=== PATIENT | female | born 1965 | race Caucasian/White ===

== ENCOUNTER → 2017-09-14 | Outpatient (CLI) | payer BC ==
[2017-09-14 08:20] LABS: HEMATOCRIT 39.4 % (37.0-47.0); HEMOGLOBIN 12.6 g/dl (12.5-16.0); MEAN CELL VOLUME 93 fl (80.0-100.0); MEAN CORPUSCULAR HEMOGLOBIN 30 pg (27.0-31.0); MEAN CORPUSCULAR HGB CONC 32 g/dl (33.0-37.0); MEAN PLATELET VOLUME 11.2 fl (7.4-10.4); PLATELET COUNT 256 K/mm3 (130-400); RED BLOOD COUNT 4.23 M/mm3 (4.10-5.30); WHITE BLOOD COUNT 6.5 K/mm3 (4.8-10.8)
[2017-09-14 08:24] LABS: ADD PATHOLOGY DIFF REVIEW NO
[2017-09-14 08:33] LABS: ADJUSTED CALCIUM 9.2 mg/dL (8.4-10.2); ALBUMIN 4.5 gm/dL (3.5-5.0); BILIRUBIN,TOTAL 0.5 mg/dL (0.0-1.0); CALCIUM 9.6 mg/dL (8.4-10.2); CHOLESTEROL RISK RATIO 5.1; CREATININE, serum 0.92 mg/dL (0.52-1.25); POTASSIUM 4.7 mmol/L (3.4-5.0); TOTAL PROTEIN 7.8 gm/dL (6.4-8.2)
[2017-09-14 09:04] LABS: TSH w REFLEX 3.34 uIU/mL (0.465-4.680)
[2017-09-14 09:48] LABS: BAND 13 % (0-10); LYMPHOCYTE 48 % (20.0-51.0); MYELOCYTE 1 % (0-0); NEUTROPHILS 36 % (42.0-75.2); PLATELET ESTIMATE NORMAL (NORMAL); TOTAL CELLS COUNTED 100
== END ==
LOC: COL.LAB 07:55
DX: Z00.00 Encounter for general adult medical examination without abnormal findings (principal); Z11.59 Encounter for screening for other viral diseases

== ENCOUNTER → 2017-11-16 | Outpatient (CLI) | payer BC | LOC: MC.RAD 09:54 | DX: N63.23 Unspecified lump in the left breast, lower outer quadrant (principal) ==

== ENCOUNTER → 2018-08-24 | Outpatient (REF) | LOC: ZLAB.WCH 15:52 | DX: Z01.89 Encounter for other specified special examinations (principal) ==

== ENCOUNTER 2018-11-24 05:58 | Day surgery (SDC) | payer BC ==
[2018-11-24] VITALS (10 sets, daily range): BP systolic 91–150; BP diastolic 51–83; PULSE 58–71; TEMP 98.3
[~2018-11-24] VITALS: Ht 170.2 cm; Wt 121.5 kg
[2018-11-24 06:38] LABS: HEMATOCRIT 37.7 % (37.0-47.0); HEMOGLOBIN 12.1 g/dl (12.5-16.0); MEAN CELL VOLUME 96 fl (80.0-100.0); MEAN CORPUSCULAR HEMOGLOBIN 31 pg (27.0-31.0); MEAN CORPUSCULAR HGB CONC 32 g/dl (33.0-37.0); MEAN PLATELET VOLUME 11.1 fl (7.4-10.4); PLATELET COUNT 274 K/mm3 (130-400); RED BLOOD COUNT 3.94 M/mm3 (4.10-5.30); REDCELL DISTRIBUTION WIDTH-CV 13.6 % (11.5-14.5)
[2018-11-24 06:45] LABS: INR 1.1 (0.8-3.0)
[2018-11-24 06:58] LABS: CALCIUM 9.3 mg/dL (8.4-10.2); CREATININE, serum 1.05 mg/dL (0.52-1.25); POTASSIUM 3.9 mmol/L (3.4-5.0)
[2018-11-24] MEDS ORDERED: CATAFLAM50 MG PO (07:02)
[2018-11-24] MEDS ORDERED: GLUCOSAMINE MSM1 TAB PO (07:03)
[2018-11-24] MEDS ORDERED: VITAMIN D 400400 IU PO (07:04)
[2018-11-24] MEDS ORDERED: ZESTRIL 20MG TA20 MG PO (07:05)
[2018-11-24] MEDS ORDERED: ZYRTEC 10MG10 MG PO (07:05)
[2018-11-24] MEDS ORDERED: PROTONIX 40MG T40 MG PO (07:05)
[2018-11-24] MEDS ORDERED: LIPITOR20 MG PO (07:06)
[2018-11-24] MEDS ORDERED: HCTZ 25MG TAB25 MG PO (07:06)
--- NOTE | 2018-11-24 08:48 | NUR ---
Patient to procedure.
--- NOTE | 2018-11-24 08:59 | NUR ---
ALL MEDICATIONS GIVEN VIA VERBAL ORDER WITH READBACK WITH MD. SEE MERGE FOR ALL ADMIN TIMES. POSITIVE BARBEAU'S TEST IN THE RIGHT WRIST.
--- NOTE | 2018-11-24 13:47 | NUR ---
Discharge instructions given to pt.INT removed,catheter tip intact.Pt escorted out via wheelchair by this nurse.
== END 2018-11-24 13:53 | disposition home or self-care (01) ==
LOC: COL.CAR 05:58
PROVIDERS: Internal Medicine Cardiovascular Disease
DX: R94.39 Abnormal result of other cardiovascular function study (principal); I10 Essential (primary) hypertension; E78.00 Pure hypercholesterolemia, unspecified; Z82.61 Family history of arthritis; Z82.5 Family history of asthma and other chronic lower respiratory diseases; Z83.3 Family history of diabetes mellitus; Z82.49 Family history of ischemic heart disease and other diseases of the circulatory system
CPT/HCPCS: J1644; J2250; J3010; Q9967

== ENCOUNTER → 2020-06-10 | Outpatient (CLI) | payer BC ==
[~2020-06-10] MED LIST: CATAFLAM50 MG PO; GLUCOSAMINE MSM1 TAB PO; HCTZ 25MG TAB25 MG PO; LIPITOR20 MG PO; PROTONIX 40MG T40 MG PO; VITAMIN D 400400 IU PO; ZESTRIL 20MG TA20 MG PO; ZYRTEC 10MG10 MG PO
== END ==
LOC: MHCPAIN 13:46
DX: M47.817 Spondylosis without myelopathy or radiculopathy, lumbosacral region (principal); M53.3 Sacrococcygeal disorders, not elsewhere classified; G89.29 Other chronic pain
CPT/HCPCS: G0463

== ENCOUNTER → 2020-06-20 | Outpatient (CLI) | payer BC | LOC: MHCPAIN 08:17 | DX: M47.818 Spondylosis without myelopathy or radiculopathy, sacral and sacrococcygeal region (principal); M53.3 Sacrococcygeal disorders, not elsewhere classified | CPT/HCPCS: G0260; J1040; Q9967 ==

== ENCOUNTER → 2020-07-02 | Outpatient (CLI) | payer BC | LOC: MHCPAIN 15:48 | DX: M47.817 Spondylosis without myelopathy or radiculopathy, lumbosacral region (principal); M54.5 Low back pain; M53.3 Sacrococcygeal disorders, not elsewhere classified; G89.29 Other chronic pain; M54.16 Radiculopathy, lumbar region | CPT/HCPCS: G0463 ==

== ENCOUNTER 2020-09-10 08:30 | Outpatient (RCR) | payer BC | END 2020-09-17 | disposition home or self-care (01) | LOC: WSC | DX: M47.817 Spondylosis without myelopathy or radiculopathy, lumbosacral region (principal); M53.3 Sacrococcygeal disorders, not elsewhere classified ==

== ENCOUNTER → 2020-10-02 | Outpatient (CLI) | payer BC | LOC: MHCPAIN 15:38 | DX: M47.817 Spondylosis without myelopathy or radiculopathy, lumbosacral region (principal); M54.5 Low back pain; M53.3 Sacrococcygeal disorders, not elsewhere classified; M79.10 Myalgia, unspecified site; G89.29 Other chronic pain | CPT/HCPCS: G0463 ==

== ENCOUNTER → 2020-10-21 | Outpatient (RCR) | payer BC | END | disposition still patient (30) | LOC: WSPT → WSC 09-18 08:30 → WSPT 10-07 08:30 → WSC 10-14 14:30 → WSPT 08:30 | DX: M53.3 Sacrococcygeal disorders, not elsewhere classified (principal) ==

== ENCOUNTER 2020-12-25 08:30 | Outpatient (RCR) | payer BC | END 2020-12-25 09:19 | disposition home or self-care (01) | LOC: WSC 08:30 | DX: M53.3 Sacrococcygeal disorders, not elsewhere classified (principal) ==

== ENCOUNTER → 2020-12-25 | Outpatient (CLI) | payer BC | LOC: MHCPAIN 15:13 | DX: M47.817 Spondylosis without myelopathy or radiculopathy, lumbosacral region (principal); M53.3 Sacrococcygeal disorders, not elsewhere classified; M54.5 Low back pain; M79.18 Myalgia, other site; G89.29 Other chronic pain | CPT/HCPCS: G0463 ==

== ENCOUNTER → 2021-06-11 | Outpatient (CLI) | payer BC | LOC: MHCPAIN 13:51 | DX: M47.817 Spondylosis without myelopathy or radiculopathy, lumbosacral region (principal); M53.3 Sacrococcygeal disorders, not elsewhere classified; G89.29 Other chronic pain | CPT/HCPCS: G0463 ==

== ENCOUNTER 2021-06-18 16:30 | Outpatient (RCR) | payer BC | END 2021-06-24 15:52 | disposition home or self-care (01) | LOC: WSPT 16:30 | DX: M25.562 Pain in left knee (principal); Z98.890 Other specified postprocedural states ==

== ENCOUNTER → 2021-06-26 | Outpatient (CLI) | payer BC | LOC: MHCPAIN 08:45 | DX: M47.818 Spondylosis without myelopathy or radiculopathy, sacral and sacrococcygeal region (principal); M53.3 Sacrococcygeal disorders, not elsewhere classified | CPT/HCPCS: G0260; J1040; Q9967 ==

== ENCOUNTER → 2021-07-08 | Outpatient (CLI) | payer BC | LOC: MHCPAIN 10:14 | DX: M47.896 Other spondylosis, lumbar region (principal); M54.5 Low back pain; M53.3 Sacrococcygeal disorders, not elsewhere classified; G89.29 Other chronic pain | CPT/HCPCS: G0463 ==

== ENCOUNTER → 2021-12-26 | Outpatient (CLI) | payer BC | LOC: COL.RAD 10:05 | DX: M23.222 Derangement of posterior horn of medial meniscus due to old tear or injury, left knee (principal); M76.892 Other specified enthesopathies of left lower limb, excluding foot; M17.12 Unilateral primary osteoarthritis, left knee ==

== ENCOUNTER 2022-03-12 12:30 | Outpatient (RCR) | payer BC | END 2022-03-17 | disposition home or self-care (01) | LOC: WSPT | DX: Z01.818 Encounter for other preprocedural examination (principal); M25.562 Pain in left knee ==

== ENCOUNTER 2022-04-13 13:30 | Outpatient (RCR) | payer BC ==
[2022-04-16] MEDS ORDERED: VANCO 1.51.5 GM/250 IV (14:14)
[2022-04-16] MEDS ORDERED: ROCEPHIN 2GM VIAL21 IV (14:14)
== END 2022-04-16 | disposition home or self-care (01) ==
LOC: WSPT
DX: Z01.818 Encounter for other preprocedural examination (principal)

== ENCOUNTER 2022-04-13 15:56 | Inpatient (IN) | payer BC ==
[~2022-04-13] VITALS: Ht 170.2 cm; Wt 119.2 kg
[2022-04-13 16:36] LABS: BASO # 0.1 K/mm3 (0.0-0.2); BASO % 0.7 % (0.0-2.0); EOS # 0.1 K/mm3 (0.0-0.7); EOS % 1.1 % (0.0-4.0); GRAN # 5.9 K/mm3 (1.4-6.5); GRAN % 50.7 % (42.2-75.2); HEMATOCRIT 40.1 % (37.0-47.0); LYMPH # 4.8 K/mm3 (1.2-3.4); LYMPH % 40.6 % (20.0-51.0); MEAN CELL VOLUME 96 fl (80.0-100.0); MEAN CORPUSCULAR HEMOGLOBIN 31 pg (27-31); MEAN CORPUSCULAR HGB CONC 32 g/dl (33.0-37.0); MEAN PLATELET VOLUME 10.5 fl (7.4-10.4); MONO # 0.8 K/mm3 (0.1-0.6); MONO % 6.6 % (1.7-9.3); PLATELET COUNT 341 K/mm3 (130-400); REDCELL DISTRIBUTION WIDTH-CV 13.9 % (11.5-14.5)
[2022-04-13 17:04] LABS: ALBUMIN 3.4 gm/dL (3.5-5.0); BILIRUBIN,TOTAL 0.4 mg/dL (0.2-1.2); CALCIUM 9.5 mg/dL (8.4-10.2); CREATININE, serum 1.24 mg/dL (0.57-1.11); POTASSIUM 3.6 mmol/L (3.5-4.5); TOTAL PROTEIN 7.1 gm/dL (6.2-8.1)
[2022-04-13 20:02] VITALS: BP 132/72; PULSE 77; TEMP 97.6
--- NOTE | 2022-04-13 21:32 | NUR ---
Pt. resting in bed. Pt. is A&OX3, assessment complete. IV to rt. hand patent. Pt. reports pain at a 4 on pain scale, will give pain meds per orders.
[2022-04-13 21:56] LABS: CALCIUM 9.4 mg/dL (8.4-10.2); CREATININE, serum 1.12 mg/dL (0.57-1.11); POTASSIUM 4.2 mmol/L (3.5-4.5)
[2022-04-14] VITALS (13 sets, daily range): BP systolic 100–154; BP diastolic 56–79; PULSE 61–95; TEMP 97.7–98.5
[2022-04-14 05:44] LABS: BASO # 0.1 K/mm3 (0.0-0.2); BASO % 0.9 % (0.0-2.0); EOS # 0.1 K/mm3 (0.0-0.7); EOS % 1.3 % (0.0-4.0); GRAN # 5.4 K/mm3 (1.4-6.5); GRAN % 59.7 % (42.2-75.2); HEMOGLOBIN 11.7 g/dl (12.5-16.0); LYMPH # 2.6 K/mm3 (1.2-3.4); LYMPH % 28.9 % (20.0-51.0); MEAN CELL VOLUME 98 fl (80.0-100.0); MEAN CORPUSCULAR HEMOGLOBIN 31 pg (27-31); MEAN CORPUSCULAR HGB CONC 32 g/dl (33.0-37.0); MEAN PLATELET VOLUME 10.5 fl (7.4-10.4); MONO # 0.8 K/mm3 (0.1-0.6); MONO % 8.9 % (1.7-9.3); PLATELET COUNT 292 K/mm3 (130-400); RED BLOOD COUNT 3.79 M/mm3 (4.10-5.30); REDCELL DISTRIBUTION WIDTH-CV 14.3 % (11.5-14.5)
[2022-04-14 05:58] LABS: CALCIUM 8.8 mg/dL (8.4-10.2); CREATININE, serum 1.25 mg/dL (0.57-1.11); POTASSIUM 4.3 mmol/L (3.5-4.5)
--- NOTE | 2022-04-14 08:37 | NUR ---
PT RESTING IN BED CURRENTLY NPO FOR SURGERY EARLY AFTERNOOD. POLY EXCHANGE AND I&D OF WOUND DEHISSENCE. PAIN CURRENTLY CONTROLLED WITH PO MEDS PRN. IV ABX GIVEN PER ORDERS.
--- NOTE | 2022-04-14 09:06 | NUR ---
Initial visit; Patient thanked Talend Developer for looking in on her though declined spiritual care at this time.
--- NOTE | 2022-04-14 11:44 | NUR ---
PT TO SURGERY PER BED WITH NEY AT THIS TIME. IV TO STRAIGHT TUBING, CONSENT SIGNED ON CHART.
--- NOTE | 2022-04-14 13:28 | NUR ---
assembly line worker met with patient ("Milla") to complete intake and discuss discharge plan. Patient reports that she lives at home with her two daughters and her mother in [place]. Patient is normally independent with her ADL's and had a knee replacement around 3 weeks ago. Patient has a rollator at bedside but states that she has not needed it until her knee replacement. She has been doing outpatient PT at [facility]. Patient is currently on 2L of [place] o2 while in bed but states that she does not utilize oxygen at home. PCP is Dr. Vizcaino and she utilizes [facility] for prescriptions. Patient states that she does not have a DPOA-HC established. Her LNK is her two daughters. Unknown at this time if the patient will need IV antibiotics or not. Patient scheduled for surgery today. Discharge plan: Home w/op pt ( will wait and see about IV antibiotics)
--- NOTE | 2022-04-14 16:04 | NUR ---
PT TO ROOM 343 PER BED WITH REPORT FROM ESTER DILLON. PT IS A/O X3, LUNGS CTA, BOWEL SOUNDS PRESENT. AQUACEL OVER INCISION, HAILEY WRAP AND KNEE IMMOBILIZER. IV TO PUMP. PT DENIES PAIN AT THIS TIME.
--- NOTE | 2022-04-14 20:15 | NUR ---
Pt. sitting up in bed. Pt. is A&OX3, assessment complete. IV to rt. hand patent, IV fluids infusing per orders. Mj wrap dressing and brace to lt. knee. Pt. denies pain or other needs at this time. Call light within reach.
[2022-04-15 00:09] VITALS: BP 136/65; PULSE 98; TEMP 98.6
[2022-04-15 03:07] VITALS: BP 143/70; PULSE 94; TEMP 98.4
[2022-04-15 07:24] VITALS: BP 140/65; PULSE 76; TEMP 98.8
[2022-04-15 12:00] VITALS: BP 156/77; PULSE 80; TEMP 98.6
[2022-04-15 15:22] VITALS: BP 154/86; PULSE 90; TEMP 98.4
[2022-04-15 19:40] VITALS: BP 147/82; PULSE 75; TEMP 98.2
--- NOTE | 2022-04-15 21:00 | NUR ---
PT RESTING IN BED. A&O X4. PLEASANT AND COOPERATIVE. IMMOBLIZER TO LLE. PAIN CONTROLED WITH ROXICODONE. GETTING VANCOMYCIN TO RT HAND INT NEEDLE. NO NEEDS AT THIS TIME.
[2022-04-16] VITALS: BP 153/82; PULSE 69; TEMP 97.8
[2022-04-16 03:55] VITALS: BP 128/86; PULSE 80; TEMP 98.3
--- NOTE | 2022-04-16 07:15 | NUR ---
awake and assisted up to bathroom, moves well, full assessment completed, see interventions for further info, knee immobilizer to right leg,
[2022-04-16 07:25] VITALS: BP 160/87; PULSE 63; TEMP 98.7
--- NOTE | 2022-04-16 09:15 | NUR ---
remains resting in bed, am meds given and vancomycin started
--- NOTE | 2022-04-16 10:22 | NUR ---
physical therapy was in and worked with patient, resting in recliner now
--- NOTE | 2022-04-16 12:00 | NUR ---
Dr Quintana in, explained to patient pneumois not any better and connected to water seal suction, patient and verbalizes understanding
[2022-04-16 12:01] VITALS: BP 147/89; PULSE 89; TEMP 98.3
[2022-04-16] MEDS ORDERED: ROCEPHIN 2GM VIAL21 IV (14:14)
[2022-04-16] MEDS ORDERED: VANCO 1.51.5 GM/250 IV (14:14)
--- NOTE | 2022-04-16 15:03 | NUR ---
resting in bed, has been up and about in room with therapy and had lunch, will plan discharge after evenign antibiotics
[2022-04-16 15:54] VITALS: BP 122/67; TEMP 99.3
--- NOTE | 2022-04-16 16:10 | NUR ---
Patient scheduled to DC. Spoke with the patient about the need for 6 weeks of antibiotics. Patient is agreeable to coming to the express unit for care. Patient's RN notified and script dropped off with RNHaseeb in [facility].
--- NOTE | 2022-04-16 17:30 | NUR ---
in bed and IV rocephin given
--- NOTE | 2022-04-16 17:36 | NUR ---
resting in bed, has ordered supper
--- NOTE | 2022-04-16 18:41 | NUR ---
bedside shift report given to SANTANA Clemente
--- NOTE | 2022-04-16 20:00 | NUR ---
Pt. sitting up in bed. Pt. is A&OX3, assessment complete. IV to lt. forearm patent, ABX infusing per orders. Pt. denies pain. Pt. will discharge when abx's are finished.
--- NOTE | 2022-04-16 20:30 | NUR ---
ABX complete at this time. Discharge paperwork reviewed with the pt. Pt. voices understanding. INT discontinued from lt. forearm. Pt. escorted out by wheel chair with LUCÍA Douglas.
== END 2022-04-16 20:30 | disposition home or self-care (01) | DRG 908 ==
LOC: COL.ER 15:56 → SURG 18:30
PROVIDERS: Personal Emergency Response Attendant; Physician Assistant; Student in an Organized Health Care Education/Training Program; ADMIT Internal Medicine
PROC: 0YQG0ZZ Repair Left Knee Region, Open Approach (ICD-10-PCS; principal; 2022-04-13)
PROC: 0SPD09Z Removal of Liner from Left Knee Joint, Open Approach (ICD-10-PCS; 2022-04-14)
PROC: 0SUW09Z Supplement Left Knee Joint, Tibial Surface with Liner, Open Approach (ICD-10-PCS; 2022-04-14)
DX: T81.31XA Disruption of external operation (surgical) wound, not elsewhere classified, initial encounter (principal); N17.9 Acute kidney failure, unspecified; W10.8XXA Fall (on) (from) other stairs and steps, initial encounter; E78.00 Pure hypercholesterolemia, unspecified; F32.9 Major depressive disorder, single episode, unspecified; Z96.652 Presence of left artificial knee joint; K21.9 Gastro-esophageal reflux disease without esophagitis; G47.33 Obstructive sleep apnea (adult) (pediatric); F32.A Depression, unspecified; G89.29 Other chronic pain; I12.9 Hypertensive chronic kidney disease with stage 1 through stage 4 chronic kidney disease, or unspecified chronic kidney disease; N18.30 Chronic kidney disease, stage 3 unspecified; Y83.8 Other surgical procedures as the cause of abnormal reaction of the patient, or of later complication, without mention of misadventure at the time of the procedure; S76.102A Unspecified injury of left quadriceps muscle, fascia and tendon, initial encounter; Y93.89 Activity, other specified; Y92.89 Other specified places as the place of occurrence of the external cause; Z88.6 Allergy status to analgesic agent; Z79.82 Long term (current) use of aspirin; Z23 Encounter for immunization
CPT/HCPCS: 99239; C1776; J0690; J0696; J1100; J1170; J2250; J2270; J2405; J2543; J2704; J3010; J3370; J7030; J7050; J7120; L1830; L1832; L1846

== ENCOUNTER 2022-05-15 11:15 | Outpatient (RCR) | payer BC ==
[~2022-05-15 11:15] MED LIST changes: +ROCEPHIN 2GM VIAL21 IV; +VANCO 1.51.5 GM/250 IV
== END 2022-05-17 | disposition home or self-care (01) ==
LOC: WSPT
DX: Z01.818 Encounter for other preprocedural examination (principal); M84.462A Pathological fracture, left tibia, initial encounter for fracture

== ENCOUNTER 2022-05-17 07:45 | Outpatient (RCR) | payer BC ==
[2022-04-17 08:08] VITALS: BP 152/99; PULSE 129; TEMP 98.5
[2022-04-17 11:04] VITALS: BP 139/97; PULSE 96
[2022-04-17 19:11] VITALS: BP 143/89; PULSE 92; TEMP 98.7
[2022-04-18 10:03] VITALS: BP 140/95; PULSE 85; TEMP 99.3
[2022-04-18 18:10] VITALS: BP 131/80; PULSE 105; TEMP 99.4
[2022-04-19 07:13] VITALS: BP 148/97; PULSE 58; TEMP 99.1
[2022-04-20 08:34] VITALS: BP 151/99; PULSE 80; TEMP 98.6
[2022-04-21 07:32] VITALS: BP 152/86; PULSE 79; TEMP 98.2
[2022-04-21 18:58] VITALS: BP 158/80; PULSE 76; TEMP 98.9
--- NOTE | 2022-04-22 07:20 | NUR ---
Reported to Gia,Pharmacist pt has vanc trough this am.Requested if able to startinfusion or wait for results.Ok to to start infuison without waiting for trough results per Gia.
[2022-04-22 07:52] VITALS: BP 150/89; PULSE 84; TEMP 99.4
[2022-04-22 08:05] LABS: BASO # 0.1 K/mm3 (0.0-0.2); EOS # 0.2 K/mm3 (0.0-0.7); EOS % 2.7 % (0.0-4.0); HEMOGLOBIN 10.3 g/dl (12.5-16.0); LYMPH # 2.2 K/mm3 (1.2-3.4); LYMPH % 26.6 % (20.0-51.0); MEAN CELL VOLUME 96 fl (80.0-100.0); MEAN CORPUSCULAR HEMOGLOBIN 31 pg (27-31); MEAN CORPUSCULAR HGB CONC 32 g/dl (33.0-37.0); MEAN PLATELET VOLUME 10.7 fl (7.4-10.4); MONO # 0.9 K/mm3 (0.1-0.6); MONO % 10.5 % (1.7-9.3); PLATELET COUNT 275 K/mm3 (130-400); RED BLOOD COUNT 3.32 M/mm3 (4.10-5.30); REDCELL DISTRIBUTION WIDTH-CV 14.4 % (11.5-14.5)
[2022-04-22 08:08] LABS: ALBUMIN 2.8 gm/dL (3.5-5.0); BILIRUBIN,TOTAL 0.3 mg/dL (0.2-1.2); C-REACTIVE PROTEIN 1.54 mg/dL (0.00-0.50); CREATININE, serum 1.44 mg/dL (0.57-1.11); POTASSIUM 3.4 mmol/L (3.5-4.5); TOTAL PROTEIN 6.4 gm/dL (6.2-8.1)
[2022-04-22 08:13] LABS: HEMATOCRIT 31.9 % (37.0-47.0)
--- NOTE | 2022-04-22 08:18 | NUR ---
Vancomycin Follow-up Pharmacy Note Current regimen: VANCOMYCIN 1.5G Q12H Vancomycin trough: 30.6 Adjustments: DECREASE TO 1.25G Q24H. BUMP IN SCR TO 1.5
[2022-04-22 09:19] LABS: ERYTHROCYTE SEDIMENTATION RATE 48 mm/hr (0-30)
[2022-04-23 09:15] VITALS: BP 142/88; PULSE 86; TEMP 98.8
[2022-04-24 08:38] VITALS: BP 142/87; PULSE 80; TEMP 99.3
[2022-04-25 08:51] VITALS: BP 140/93; PULSE 74; TEMP 98.5
[2022-04-26 08:16] VITALS: BP 154/93; PULSE 65; TEMP 99.2
[2022-04-27 08:25] LABS: HEMOGLOBIN 10.2 g/dl (12.5-16.0); MEAN CELL VOLUME 97 fl (80.0-100.0); MEAN CORPUSCULAR HEMOGLOBIN 31 pg (27-31); MEAN CORPUSCULAR HGB CONC 32 g/dl (33.0-37.0); MEAN PLATELET VOLUME 10.7 fl (7.4-10.4); PLATELET COUNT 312 K/mm3 (130-400); RED BLOOD COUNT 3.34 M/mm3 (4.10-5.30)
--- NOTE | 2022-04-27 08:25 | NUR ---
Pt c/o fluttering sensation with flushing of PICC line. MELISSA Cooney RN notified. She states chest xray should be completed to rule out tip migration. Pt moved to Rm 15 for CXR.
[2022-04-27 08:26] LABS: HEMATOCRIT 32.3 % (37.0-47.0)
[2022-04-27 08:39] LABS: BILIRUBIN,TOTAL 0.3 mg/dL (0.2-1.2); C-REACTIVE PROTEIN 0.77 mg/dL (0.00-0.50); CREATININE, serum 1.22 mg/dL (0.57-1.11); POTASSIUM 3.5 mmol/L (3.5-4.5); TOTAL PROTEIN 6.4 gm/dL (6.2-8.1)
--- NOTE | 2022-04-27 08:45 | NUR ---
Received a phone call from the express unit. [facility] reported patient hears a funny feeling in her right neck. Chest x-ray done. PICC catheter tip is located in patient's right internal jugular vein. Flushed PICC with normal saline x3. Patient reported no more funny feeling present. Chest x-ray done. Catheter tip is located in mid SVC region. Express unit nurse notified.
[2022-04-27 09:04] LABS: ERYTHROCYTE SEDIMENTATION RATE 46 mm/hr (0-30)
[2022-04-27 09:07] VITALS: BP 155/96; PULSE 69; TEMP 98.8
[2022-04-28 09:25] VITALS: BP 147/92; PULSE 86; TEMP 99.1
[2022-04-29 08:45] VITALS: BP 123/86; PULSE 86; TEMP 98.8
[2022-04-30 08:15] VITALS: BP 128/80; PULSE 72; TEMP 99.4
[2022-05-01 08:27] VITALS: BP 107/73; PULSE 88; TEMP 98.6
[2022-05-02 09:58] VITALS: BP 1122/84; PULSE 87; TEMP 98.9
[2022-05-03 08:13] VITALS: BP 118/79; PULSE 82; TEMP 98.5
[2022-05-04 08:22] LABS: HEMATOCRIT 37.6 % (37.0-47.0); HEMOGLOBIN 12.2 g/dl (12.5-16.0); MEAN CELL VOLUME 95 fl (80.0-100.0); MEAN CORPUSCULAR HEMOGLOBIN 31 pg (27-31); MEAN CORPUSCULAR HGB CONC 32 g/dl (33.0-37.0); PLATELET COUNT 359 K/mm3 (130-400); RED BLOOD COUNT 3.97 M/mm3 (4.10-5.30)
[2022-05-04 08:43] LABS: ERYTHROCYTE SEDIMENTATION RATE 32 mm/hr (0-30)
[2022-05-04 08:47] LABS: ALBUMIN 3.4 gm/dL (3.5-5.0); BILIRUBIN,TOTAL 0.4 mg/dL (0.2-1.2); C-REACTIVE PROTEIN 0.54 mg/dL (0.00-0.50); CALCIUM 9.5 mg/dL (8.4-10.2); CREATININE, serum 1.51 mg/dL (0.57-1.11); POTASSIUM 3.7 mmol/L (3.5-4.5); TOTAL PROTEIN 7.2 gm/dL (6.2-8.1)
[2022-05-04 09:00] VITALS: BP 131/68; PULSE 79; TEMP 99.3
[2022-05-05 08:21] VITALS: BP 111/73; PULSE 83; TEMP 98.8
[2022-05-06 08:05] VITALS: BP 101/64; PULSE 93; TEMP 98.9
[2022-05-07 08:33] VITALS: BP 113/70; PULSE 78; TEMP 96.7
[2022-05-08 09:00] VITALS: BP 117/82; PULSE 89; TEMP 98.3
[2022-05-09 08:28] VITALS: BP 122/80; PULSE 91; TEMP 98.2
[2022-05-10 08:29] VITALS: BP 115/76; PULSE 76; TEMP 98.5
[2022-05-11 08:19] VITALS: BP 128/84; PULSE 74; TEMP 98.3
[2022-05-11 08:36] LABS: HEMOGLOBIN 10.6 g/dl (12.5-16.0); MEAN CELL VOLUME 95 fl (80.0-100.0); MEAN CORPUSCULAR HEMOGLOBIN 31 pg (27-31); MEAN CORPUSCULAR HGB CONC 32 g/dl (33.0-37.0); MEAN PLATELET VOLUME 11.3 fl (7.4-10.4); PLATELET COUNT 255 K/mm3 (130-400); RED BLOOD COUNT 3.48 M/mm3 (4.10-5.30); REDCELL DISTRIBUTION WIDTH-CV 13.8 % (11.5-14.5)
[2022-05-11 08:38] LABS: HEMATOCRIT 32.9 % (37.0-47.0)
[2022-05-11 08:47] LABS: ALBUMIN 3.1 gm/dL (3.5-5.0); BILIRUBIN,TOTAL 0.4 mg/dL (0.2-1.2); C-REACTIVE PROTEIN 0.82 mg/dL (0.00-0.50); CREATININE, serum 1.64 mg/dL (0.57-1.11); POTASSIUM 4.3 mmol/L (3.5-4.5); TOTAL PROTEIN 6.5 gm/dL (6.2-8.1)
[2022-05-11 09:07] LABS: ERYTHROCYTE SEDIMENTATION RATE 32 mm/hr (0-30)
[2022-05-12 08:10] VITALS: BP 111/76; PULSE 87; TEMP 99
[2022-05-13 08:26] VITALS: BP 139/90; PULSE 125; TEMP 98.2
[2022-05-14 08:23] VITALS: BP 143/90; PULSE 83; TEMP 98.7
[2022-05-15 08:44] VITALS: BP 146/89; PULSE 90; TEMP 98.2
[2022-05-16 08:00] VITALS: BP 115/79; PULSE 101; TEMP 98.3
[~2022-05-17] VITALS: Ht 170.2 cm; Wt 118.7 kg
[2022-05-17 08:25] VITALS: BP 131/85; PULSE 87; TEMP 98.8
== END 2022-05-17 09:45 | disposition home or self-care (01) ==
LOC: EUO 07:45
PROVIDERS: Internal Medicine; Internal Medicine Infectious Disease
DX: Z45.2 Encounter for adjustment and management of vascular access device (principal)
CPT/HCPCS: C1751; J0696; J3370; J7050

== ENCOUNTER 2022-05-26 08:00 | Outpatient (RCR) | payer BC ==
[2022-05-18 11:12] LABS: HEMATOCRIT 37.7 % (37.0-47.0); MEAN CELL VOLUME 97 fl (80.0-100.0); MEAN CORPUSCULAR HEMOGLOBIN 31 pg (27-31); MEAN CORPUSCULAR HGB CONC 32 g/dl (33.0-37.0); PLATELET COUNT 344 K/mm3 (130-400)
[2022-05-18 11:29] VITALS: BP 108/73; PULSE 100; TEMP 98.3
[2022-05-18 11:37] LABS: ERYTHROCYTE SEDIMENTATION RATE 35 mm/hr (0-30)
[2022-05-18 11:39] LABS: ALBUMIN 3.5 gm/dL (3.5-5.0); BILIRUBIN,TOTAL 0.5 mg/dL (0.2-1.2); C-REACTIVE PROTEIN 0.8 mg/dL (0.00-0.50); CALCIUM 9.9 mg/dL (8.4-10.2); CREATININE, serum 1.94 mg/dL (0.57-1.11); TOTAL PROTEIN 7.4 gm/dL (6.2-8.1)
[2022-05-19 08:15] VITALS: BP 112/75; PULSE 94; TEMP 98.1
[2022-05-20 09:42] VITALS: BP 127/81; PULSE 85; TEMP 97
[2022-05-21 10:03] VITALS: BP 111/75; PULSE 86; TEMP 98.6
[2022-05-22 10:46] VITALS: BP 111/78; PULSE 92; TEMP 98.8
[2022-05-23 08:17] VITALS: BP 103/70; PULSE 83; TEMP 98.7
--- NOTE | 2022-05-24 08:36 | NUR ---
PATIENT CALLD ABOUT 0815, STATED SHE COULD NOT FIND A RIDE SO SHE WOULD NOT BE ABLE TO COME IN FOR HER ANTIBIOTICS. I ENCOURAGD HER TO KEEP TRYING IF TRYING AND TO CALL ME IF SHE FOUND A RIDE BEFORE 1030, AND IF SHE FOUND A RIDE AFTER THAT TO GO TO THE ER AND SHE COULD STILL GET HER DOSE TODAY.
[2022-05-25 08:18] VITALS: BP 91/59; PULSE 95; TEMP 98.7
[2022-05-25 08:30] LABS: BASO # 0.1 K/mm3 (0.0-0.2); EOS # 0.2 K/mm3 (0.0-0.7); EOS % 2.1 % (0.0-4.0); GRAN # 5.4 K/mm3 (1.4-6.5); GRAN % 53.6 % (42.2-75.2); HEMOGLOBIN 11.7 g/dl (12.5-16.0); LYMPH # 3.6 K/mm3 (1.2-3.4); MEAN CELL VOLUME 95 fl (80.0-100.0); MEAN CORPUSCULAR HEMOGLOBIN 31 pg (27-31); MEAN CORPUSCULAR HGB CONC 33 g/dl (33.0-37.0); MEAN PLATELET VOLUME 11.1 fl (7.4-10.4); MONO # 0.8 K/mm3 (0.1-0.6); PLATELET COUNT 327 K/mm3 (130-400); RED BLOOD COUNT 3.77 M/mm3 (4.10-5.30); REDCELL DISTRIBUTION WIDTH-CV 13.7 % (11.5-14.5)
[2022-05-25 08:39] LABS: HEMATOCRIT 35.7 % (37.0-47.0)
[2022-05-25 08:43] LABS: ALBUMIN 3.3 gm/dL (3.5-5.0); BILIRUBIN,TOTAL 0.3 mg/dL (0.2-1.2); C-REACTIVE PROTEIN 0.78 mg/dL (0.00-0.50); CALCIUM 9.8 mg/dL (8.4-10.2); CREATININE, serum 1.7 mg/dL (0.57-1.11); POTASSIUM 4.1 mmol/L (3.5-4.5); TOTAL PROTEIN 7.1 gm/dL (6.2-8.1)
[2022-05-25 09:10] LABS: ERYTHROCYTE SEDIMENTATION RATE 37 mm/hr (0-30)
[~2022-05-26] VITALS: Ht 170.2 cm; Wt 116.8 kg
[2022-05-26 08:07] VITALS: BP 98/70; PULSE 90; TEMP 98.8
== END 2022-05-26 11:26 | disposition still patient (30) ==
LOC: EUO 08:00
PROVIDERS: Internal Medicine Infectious Disease
DX: N17.9 Acute kidney failure, unspecified (principal)
CPT/HCPCS: J0696; J3370; J7050

== ENCOUNTER → 2022-06-17 | Outpatient (RCR) | payer BC | END | disposition home or self-care (01) | LOC: WSPT | DX: M25.562 Pain in left knee (principal); R26.89 Other abnormalities of gait and mobility ==

== ENCOUNTER 2024-04-12 15:00 | Outpatient (RCR) | payer OTHER | END 2024-04-16 | disposition home or self-care (01) | LOC: WSPT | DX: M54.50 Low back pain, unspecified (principal); M25.561 Pain in right knee; M25.562 Pain in left knee; M25.551 Pain in right hip; M25.552 Pain in left hip; G89.29 Other chronic pain; R53.81 Other malaise ==

== ENCOUNTER → 2024-05-09 | Outpatient (CLI) | payer OTHER ==
[2024-05-09 11:27] LABS: ALBUMIN 3.5 g/dL (3.4-4.8); CALCIUM 9.7 mg/dL (8.4-10.2); CREATININE, serum 1.34 mg/dL (0.57-1.11); PHOSPHOROUS 3.2 mg/dL (2.3-4.7); POTASSIUM 4.7 mEq/L (3.5-4.5)
== END ==
LOC: COL.LAB 10:13
PROVIDERS: Internal Medicine Nephrology
DX: N18.31 Chronic kidney disease, stage 3a (principal)

== ENCOUNTER → 2024-05-17 | Outpatient (RCR) | payer OTHER | END | disposition home or self-care (01) | LOC: WSC → WSPT 04-17 13:24 → WSC 15:00 | DX: M54.50 Low back pain, unspecified (principal); M25.561 Pain in right knee; M25.562 Pain in left knee; M25.551 Pain in right hip; M25.552 Pain in left hip; G89.29 Other chronic pain; R53.81 Other malaise ==

== ENCOUNTER 2024-06-14 13:30 | Outpatient (RCR) | payer OTHER | END 2024-06-17 | disposition home or self-care (01) | LOC: WSPT | DX: M54.50 Low back pain, unspecified (principal); M25.569 Pain in unspecified knee; R53.81 Other malaise; N18.31 Chronic kidney disease, stage 3a ==